=== PATIENT | female | born 1990 ===

== ENCOUNTER 2022-08-29 17:11 | Emergency (ER) | payer OTHER ==
[~2022-08-29] VITALS: Ht 157.5 cm; Wt 43.5 kg
[~2022-08-29 17:11] MED LIST: CODACE30 PO; HYDPAM25 PO
[2022-08-29 18:02] LABS: BASOPHILS ABSOLUTE AUTO 0.05 K/mm3 (0.00-0.23); BASOPHILS PERCENT AUTO 1 % (0-2); EOSINOPHILS ABSOLUTE AUTO 0.17 K/mm3 (0.00-0.68); EOSINOPHILS PERCENT AUTO 2 % (0-6); Hematocrit 41.2 % (33.0-51.0); Hemoglobin 13.9 g/dL (11.5-16.0); IMMATURE GRAN ABSOLUTE AUTO 0.02 K/mm3 (0.00-0.10); IMMATURE GRAN PERCENT AUTO 0 % (0-1); LYMPHOCYTES ABSOLUTE AUTO 4.29 K/mm3 (0.84-5.20); LYMPHOCYTES PERCENT AUTO 53 % (21-46); MONOCYTES ABSOLUTE AUTO 0.45 K/mm3 (0.16-1.47); MONOCYTES PERCENT AUTO 6 % (4-13); Mean Corpuscular HGB Conc 33.7 g/dL (31.5-36.5); Mean Corpuscular Volume 89 fL (80-100); Mean Platelet Volume 9.1 fL (9.1-12.4); NEUTROPHILS ABSOLUTE AUTO 3.11 K/mm3 (1.96-9.15); NEUTROPHILS PERCENT AUTO 39 % (41-73); Platelet Count 267 K/mm3 (150-400); RDW Standard Deviation 39.1 fL (35.1-46.3); Red Blood Cell Count 4.63 M/mm3 (3.80-5.20); White Blood Cell Count 8.09 K/mm3 (4.00-11.30)
[2022-08-29 18:14] LABS: Albumin/Globulin Ratio 1.2 (0.8-1.8); Bilirubin, Total 0.3 mg/dL (0.1-1.0); Bun/Creatinine Ratio 12.4 (12.0-20.0); Calcium, Blood 9.1 mg/dL (8.5-10.1); Creatinine, Blood 0.72 mg/dL (0.40-1.00); Globulin, Blood 3.3 g/dL (2.2-4.0); Potassium, Blood 3.7 mmol/L (3.5-5.5); Total Protein, Blood 7.3 g/dL (6.4-8.2)
[2022-08-29 19:36] LABS: Source, Urine Clean Catch
[2022-08-29 19:43] LABS: Appearance, Urine Clear (Clear); Bilirubin, Urine Neg (Neg); Blood, Urine Neg (Neg); Color, Urine Yellow (P-Yellow); Glucose Qualitative, Urine Neg (Neg); Ketones, Urine Neg (Neg); Leukocyte Esterase, Urine Neg (Neg); Nitrite, Urine Neg (Neg); Protein, Urine Neg (Neg); Urobilinogen, Urine NORM (Normal); pH, Urine 6.5 (5.0-8.0)
[2022-08-29] MEDS ORDERED: SEROQUEL50 MG PO (20:43)
[2022-08-29] MEDS ORDERED: Amitriptyline H10 MG PO (20:43)
[2022-08-29] MEDS ORDERED: MECL12.5 PO (20:43)
[2022-08-29] MEDS ORDERED: FLUO10 (20:43)
[2022-08-29] MEDS ORDERED: TRAM50 (20:43)
[2022-08-29] MEDS ORDERED: LAMOTRIGINE100 M1 PO (20:43)
[2022-08-29] MEDS ORDERED: PREGABALIN50 MG PO (20:44)
[2022-08-29] MEDS ORDERED: TIZANIDINE HCL213 PO (20:44)
== END 2022-08-29 23:18 | disposition home or self-care (01) ==
LOC: ER 17:11
PROVIDERS: Physician Assistant
DX: G43.109 Migraine with aura, not intractable, without status migrainosus (principal); R20.0 Anesthesia of skin
CPT/HCPCS: 36415; 70450; 80053; 81003; 81025; 85025; 93005; 93010; 96374; 96375; 99284-25; J1200; J1885; J2765

== ENCOUNTER → 2022-09-07 | Outpatient (CLI) | payer OTHER ==
[~2022-09-07] MED LIST changes: +Amitriptyline H10 MG PO; +FLUO10; +LAMOTRIGINE100 M1 PO; +MECL12.5 PO; +PREGABALIN50 MG PO; +SEROQUEL50 MG PO; +TIZANIDINE HCL213 PO; +TRAM50
[2022-09-07 16:46] LABS: Microalbumin, Urine Quant. <5.000 mg/L (0.000-20.000); Protein, Urine Quantitative <5.0 mg/dL (0.0-11.9)
== END | disposition home or self-care (01) ==
LOC: LAB SHORT 15:09 → LAB 15:09
PROVIDERS: Internal Medicine Nephrology
DX: N18.30 Chronic kidney disease, stage 3 unspecified (principal); D63.1 Anemia in chronic kidney disease; N25.81 Secondary hyperparathyroidism of renal origin; E78.00 Pure hypercholesterolemia, unspecified; E55.9 Vitamin D deficiency, unspecified; G60.9 Hereditary and idiopathic neuropathy, unspecified; R76.9 Abnormal immunological finding in serum, unspecified; R94.5 Abnormal results of liver function studies
CPT/HCPCS: 81050; 82043; 82570; 84156

== ENCOUNTER → 2023-05-08 | Outpatient (CLI) | payer OTHER ==
[2023-05-08 18:28] LABS: Source, Urine Clean Catch
[2023-05-08 19:24] LABS: Appearance, Urine Hazy (Clear); Bilirubin, Urine Neg (Neg); Blood, Urine 1+ (Neg); Glucose Qualitative, Urine Neg (Neg); Ketones, Urine Neg (Neg); Leukocyte Esterase, Urine 1+ (Neg); Nitrite, Urine Neg (Neg); Protein, Urine 1+ (Neg); Specific Gravity, Urine 1.015 (1.003-1.022); Urobilinogen, Urine NORM (Normal)
[2023-05-08 19:38] LABS: Color, Urine Pale Yellow (P-Yellow)
[2023-05-08 19:41] LABS: Bacteria Many /hpf; Red Blood Cells, Urine 0-2 /hpf (0-2); Squamous Epithelial Cells Mod /hpf (Few)
[2023-05-08 19:42] LABS: Amorphous Light (0-Heavy); Mucus Light (0-Heavy)
== END | disposition home or self-care (01) ==
LOC: LAB 18:24 → LAB SHORT 18:24
PROVIDERS: Family Medicine
DX: Z34.91 Encounter for supervision of normal pregnancy, unspecified, first trimester (principal)
CPT/HCPCS: 81001; 87086

== ENCOUNTER → 2023-06-05 | Outpatient (CLI) | payer OTHER ==
[2023-06-08 07:11] LABS: CHLAMYDIA TRACHOMATIS, NAA Negative (Negative)
== END | disposition home or self-care (01) ==
LOC: LAB 12:46 → LAB SHORT 12:46
PROVIDERS: Family Medicine
DX: Z34.91 Encounter for supervision of normal pregnancy, unspecified, first trimester (principal)
CPT/HCPCS: 87491; 87591

== ENCOUNTER → 2023-07-29 | Outpatient (CLI) | payer OTHER ==
[2023-07-29 12:45] LABS: Protein, Urine Quantitative 6.4 mg/dL (0.0-11.9)
[2023-07-29 12:47] LABS: Microalbumin, Urine Quant. <5.000 mg/L (0.000-20.000)
== END ==
LOC: LAB 08:00 → LAB SHORT 08:00
PROVIDERS: Internal Medicine Nephrology
DX: N18.2 Chronic kidney disease, stage 2 (mild) (principal); D63.1 Anemia in chronic kidney disease; N25.81 Secondary hyperparathyroidism of renal origin; E55.9 Vitamin D deficiency, unspecified; R76.9 Abnormal immunological finding in serum, unspecified; R94.5 Abnormal results of liver function studies; G60.9 Hereditary and idiopathic neuropathy, unspecified
CPT/HCPCS: 81050; 82043; 84156

== ENCOUNTER 2023-09-24 18:43 | Emergency (ER) | payer OTHER ==
[~2023-09-24] VITALS: Ht 160 cm; Wt 66.7 kg
[2023-09-24 19:02] VITALS: BP 127/82
== END 2023-09-24 19:15 | disposition home or self-care (01) ==
LOC: ER 18:43
DX: O99.891 Other specified diseases and conditions complicating pregnancy (principal); R07.89 Other chest pain; Z88.5 Allergy status to narcotic agent; Z79.899 Other long term (current) drug therapy; Z3A.27 27 weeks gestation of pregnancy
CPT/HCPCS: 99282

== ENCOUNTER → 2023-09-25 | Outpatient (CLI) | payer OTHER ==
[2023-09-25 14:35] LABS: BASOPHILS ABSOLUTE AUTO 0.04 K/mm3 (0.00-0.23); BASOPHILS PERCENT AUTO 0 % (0-2); EOSINOPHILS ABSOLUTE AUTO 0.08 K/mm3 (0.00-0.68); EOSINOPHILS PERCENT AUTO 1 % (0-6); Hematocrit 36.1 % (33.0-51.0); Hemoglobin 11.9 g/dL (11.5-16.0); IMMATURE GRAN ABSOLUTE AUTO 0.14 K/mm3 (0.00-0.10); IMMATURE GRAN PERCENT AUTO 1 % (0-1); LYMPHOCYTES PERCENT AUTO 16 % (21-46); MONOCYTES ABSOLUTE AUTO 0.41 K/mm3 (0.16-1.47); MONOCYTES PERCENT AUTO 4 % (4-13); Mean Corpuscular HGB 30.3 pg (26.0-34.0); Mean Corpuscular Volume 92 fL (80-100); Mean Platelet Volume 9.3 fL (9.1-12.4); NEUTROPHILS ABSOLUTE AUTO 8.04 K/mm3 (1.96-9.15); NEUTROPHILS PERCENT AUTO 78 % (41-73); Platelet Count 278 K/mm3 (150-400); RDW Coefficient Variation 13.8 % (11.7-14.2); RDW Standard Deviation 47.3 fL (35.1-46.3); Red Blood Cell Count 3.93 M/mm3 (3.80-5.20); White Blood Cell Count 10.31 K/mm3 (4.00-11.30)
== END | disposition home or self-care (01) ==
LOC: LAB SHORT 13:32 → LAB 13:32
PROVIDERS: Family Medicine
DX: Z34.83 Encounter for supervision of other normal pregnancy, third trimester (principal)
CPT/HCPCS: 82950; 85025

== ENCOUNTER → 2023-11-20 | Outpatient (CLI) | payer OTHER | LOC: LAB SHORT 17:48 → LAB 17:48 | DX: Z34.83 Encounter for supervision of other normal pregnancy, third trimester (principal) | CPT/HCPCS: 87081; 87150 ==

== ENCOUNTER 2023-12-09 18:54 | Inpatient (IN) | payer OTHER ==
[~2023-12-09] VITALS: Ht 160 cm; Wt 70.0 kg
[~2023-12-09 18:54] MED LIST changes: +AMIT50 PO; -Amitriptyline H10 MG PO; +HYDHCL25 PO; -HYDPAM25 PO; -TRAM50; +TRAM50 PO
[2023-12-09] MEDS ORDERED: Castor Oil 59.146 ML BTL TOP PRN (19:45)
[2023-12-09] MEDS ORDERED: Misoprostol 200 MCG Tab PR PRN (19:45)
[2023-12-09] MEDS ORDERED: Lidocaine HCl 1% 30 ML SDV XX PRN (19:45)
[2023-12-09] MEDS ORDERED: LR Oxytocin 20 Units 1,000 ML IV PRN (19:45)
[2023-12-09] MEDS ORDERED: Lactated Ringer's 1,000 ML IV PRN (19:45)
[2023-12-09] MEDS ORDERED: Bupivacaine 0.5% HCl 5 MG/ML 30MLVIAL XX PRN (19:45)
[2023-12-09] MEDS ORDERED: Bupivacaine HCl 2.5 MG/ML 10ML P/F Injection XX PRN (19:45)
[2023-12-09] MEDS ORDERED: Oxytocin 10 Unit / ML Vial IM PRN (19:45)
[2023-12-09] MEDS ORDERED: Methylergonovine Maleate 0.2MG / ML 1ML Amp IM PRN (19:45)
[2023-12-09] MEDS ORDERED: Ampicillin Sod 2,000 MG in NS 100 ML IV ONE (19:50)
[2023-12-09 19:53] VITALS: BP 132/59
[2023-12-09] MEDS ORDERED: Lactated Ringer's 1,000 ML IV SCH (20:40)
[2023-12-09] MEDS ORDERED: Misoprostol 25 MCG Tab VAG PRN (20:40)
[2023-12-09 20:45] LABS: BASOPHILS ABSOLUTE AUTO 0.03 K/mm3 (0.00-0.23); BASOPHILS PERCENT AUTO 0 % (0-2); EOSINOPHILS ABSOLUTE AUTO 0.09 K/mm3 (0.00-0.68); EOSINOPHILS PERCENT AUTO 1 % (0-6); Hematocrit 38.2 % (33.0-51.0); Hemoglobin 13.2 g/dL (11.5-16.0); IMMATURE GRAN ABSOLUTE AUTO 0.09 K/mm3 (0.00-0.10); IMMATURE GRAN PERCENT AUTO 1 % (0-1); LYMPHOCYTES ABSOLUTE AUTO 3.13 K/mm3 (0.84-5.20); LYMPHOCYTES PERCENT AUTO 21 % (21-46); MONOCYTES ABSOLUTE AUTO 0.82 K/mm3 (0.16-1.47); MONOCYTES PERCENT AUTO 6 % (4-13); Mean Corpuscular HGB 30.1 pg (26.0-34.0); Mean Corpuscular HGB Conc 34.6 g/dL (31.5-36.5); Mean Corpuscular Volume 87 fL (80-100); Mean Platelet Volume 9.7 fL (9.1-12.4); NEUTROPHILS ABSOLUTE AUTO 10.44 K/mm3 (1.96-9.15); NEUTROPHILS PERCENT AUTO 72 % (41-73); Platelet Count 288 K/mm3 (150-400); RDW Coefficient Variation 13.4 % (11.7-14.2); RDW Standard Deviation 42.3 fL (35.1-46.3); Red Blood Cell Count 4.39 M/mm3 (3.80-5.20)
[2023-12-09 23:09] VITALS: BP 127/70
[2023-12-10] VITALS (31 sets, daily range): BP systolic 114–165; BP diastolic 60–94
[2023-12-10] MEDS ORDERED: Ampicillin Sod 1,000 MG in NS 50 ML IV SCH
[2023-12-10] MEDS ORDERED: Ondansetron HCl 2 MG / ML 2ML Vial IV PRN ×2 (06:20→08:40)
[2023-12-10] MEDS ORDERED: Ondansetron HCl 2 MG / ML 2ML Vial ONE (06:24)
[2023-12-10] MEDS ORDERED: LR Oxytocin 20 Units 1,000 ML IV SCH ×3 (06:25→09:40)
[2023-12-10] MEDS ORDERED: Lactated Ringer's 1,000 ML IV SCH ×4 (06:25→18:15)
[2023-12-10] MEDS ORDERED: ePHEDrine Sulfate 50 MG/ML 1ML Injection XX PRN (08:05)
[2023-12-10] MEDS ORDERED: FentaNYL 2mcg/ml-Bup 0.1% Epd 250 ML EPI PRN (08:05)
[2023-12-10] MEDS ORDERED: ePHEDrine Sulfate 50 MG/ML 1ML Injection IV PRN (08:35)
[2023-12-10] MEDS ORDERED: Naloxone HCl 0.4MG / ML 1ML Vial IV PRN (08:40)
[2023-12-10] MEDS ORDERED: Metoclopramide HCl 5MG / ML 2ML Vial IV PRN (08:40)
[2023-12-10] MEDS ORDERED: DiphenhydrAMINE HCl 50 MG/ML 1ML Vial IV PRN (08:40)
[2023-12-10] MEDS ORDERED: Ketorolac Tromethamine 30mg Vial IV PRN ×2 (18:05→19:00)
[2023-12-10] MEDS ORDERED: Benzocaine Topical Anesthetic Spray 60GM TOP PRN (18:15)
[2023-12-10] MEDS ORDERED: FLU VACC QS2023-24(6MOS UP)/PF 60 MCG/0.5 ML SYRINGE IM ONE (18:20)
[2023-12-10] MEDS ORDERED: Witch Hazel/Glycerin PADS TOP PRN (18:20)
[2023-12-10] MEDS ORDERED: HyDROXyzine HCl 25 MG Tab PO PRN (18:25)
[2023-12-10] MEDS ORDERED: AMITRIPTYLINE150 M1 PO (18:49)
[2023-12-10] MEDS ORDERED: FOLI1 PO (18:55)
[2023-12-10] MEDS ORDERED: Aspir 8181 MG PO (18:56)
[2023-12-10] MEDS ORDERED: Ketorolac Tromethamine 30mg Vial IV ONE (19:00)
[2023-12-10] MEDS ORDERED: LamoTRIgine 25 MG Tab PO SCH (21:00)
[2023-12-10] MEDS ORDERED: Amitriptyline HCl 10 MG Tab PO SCH (21:00)
[2023-12-10] MEDS ORDERED: Amitriptyline HCl 50 MG Tab PO SCH (21:00)
[2023-12-10] MEDS ORDERED: QUEtiapine Fumarate 50 MG TAB PO SCH (21:00)
[2023-12-11 03:16] VITALS: BP 119/79
[2023-12-11 05:15] VITALS: BP 129/73
[2023-12-11 06:12] LABS: BASOPHILS ABSOLUTE AUTO 0.05 K/mm3 (0.00-0.23); BASOPHILS PERCENT AUTO 0 % (0-2); EOSINOPHILS ABSOLUTE AUTO 0.11 K/mm3 (0.00-0.68); EOSINOPHILS PERCENT AUTO 1 % (0-6); Hematocrit 37.3 % (33.0-51.0); Hemoglobin 12.9 g/dL (11.5-16.0); IMMATURE GRAN ABSOLUTE AUTO 0.07 K/mm3 (0.00-0.10); IMMATURE GRAN PERCENT AUTO 1 % (0-1); LYMPHOCYTES ABSOLUTE AUTO 3.14 K/mm3 (0.84-5.20); LYMPHOCYTES PERCENT AUTO 23 % (21-46); MONOCYTES ABSOLUTE AUTO 0.75 K/mm3 (0.16-1.47); MONOCYTES PERCENT AUTO 5 % (4-13); Mean Corpuscular HGB 29.9 pg (26.0-34.0); Mean Corpuscular HGB Conc 34.6 g/dL (31.5-36.5); Mean Corpuscular Volume 87 fL (80-100); Mean Platelet Volume 9.3 fL (9.1-12.4); NEUTROPHILS ABSOLUTE AUTO 9.77 K/mm3 (1.96-9.15); NEUTROPHILS PERCENT AUTO 70 % (41-73); Platelet Count 238 K/mm3 (150-400); RDW Coefficient Variation 13.3 % (11.7-14.2); RDW Standard Deviation 42.1 fL (35.1-46.3); Red Blood Cell Count 4.31 M/mm3 (3.80-5.20); White Blood Cell Count 13.89 K/mm3 (4.00-11.30)
[2023-12-11 06:43] LABS: Albumin, Blood 2.1 g/dL (3.4-5.0); Anion Gap 5 mmol/L (6-16); Blood Urea Nitrogen 7 mg/dL (8-24); Bun/Creatinine Ratio 12.9 (12.0-20.0); CO2, Blood 23 mmol/L (21-32); Calcium, Blood 8.6 mg/dL (8.5-10.1); Chloride, Blood 111 mmol/L (98-108); Creatinine, Blood 0.54 mg/dL (0.40-1.00); Glomerular Filtration Rate 124 (60-); Glucose, Blood 81 mg/dL (70-99); Phosphorus, Blood 3.4 mg/dL (2.5-4.9); Potassium, Blood 3.8 mmol/L (3.5-5.5); Sodium, Blood 139 mmol/L (136-145)
[2023-12-11 07:21] VITALS: BP 132/77
[2023-12-11] MEDS ORDERED: Amitriptyline HCl 50 MG Tab PO SCH (09:00)
[2023-12-11] MEDS ORDERED: Prenatal Vit/FE Fumarate/FA 1 Tab PO SCH (09:00)
[2023-12-11 11:32] VITALS: BP 123/69
== END 2023-12-11 18:15 | disposition home or self-care (01) | DRG 807 ==
LOC: BC 18:54 → OBS 18:54 → BC 19:05 → EDBD 12-11 18:15 → BC 12-11 18:15
PROVIDERS: Family Medicine; Registered Nurse Community Health; ADMIT Family Medicine
PROC: 10E0XZZ Delivery of Products of Conception, External Approach (ICD-10-PCS; principal; 2023-12-10)
PROC: 10907ZC Drainage of Amniotic Fluid, Therapeutic from Products of Conception, Via Natural or Artificial Opening (ICD-10-PCS; 2023-12-10)
PROC: 3E0R3BZ Introduction of Anesthetic Agent into Spinal Canal, Percutaneous Approach (ICD-10-PCS; 2023-12-10)
PROC: 00HU33Z Insertion of Infusion Device into Spinal Canal, Percutaneous Approach (ICD-10-PCS; 2023-12-10)
DX: O99.824 Streptococcus B carrier state complicating childbirth (principal); Z37.0 Single live birth; Z3A.39 39 weeks gestation of pregnancy; O77.0 Labor and delivery complicated by meconium in amniotic fluid; O69.81X0 Labor and delivery complicated by cord around neck, without compression, not applicable or unspecified; O70.9 Perineal laceration during delivery, unspecified; Z88.5 Allergy status to narcotic agent; Z79.899 Other long term (current) drug therapy; Z98.890 Other specified postprocedural states
CPT/HCPCS: 36415; 51702; 80069; 85025; 86850; 86900; 86901; A9270; J0290; J1885; J2405; J2590; J7120

== ENCOUNTER → 2024-12-10 | Outpatient (CLI) | payer OTHER ==
[~2024-12-10] MED LIST changes: +AMITRIPTYLINE150 M1 PO; +Aspir 8181 MG PO; +FOLI1 PO
[2024-12-10 16:06] LABS: Microalbumin, Urine Quant. 5.89 mg/L (0.000-20.000)
[2024-12-10 16:09] LABS: Creatinine Urine 69.5 mg/dL (27.00-270.00); Protein, Urine Quantitative 13.1 mg/dL (0.0-11.9)
== END | disposition home or self-care (01) ==
LOC: LAB SHORT 13:48 → LAB 13:48
PROVIDERS: Internal Medicine Nephrology
DX: N18.2 Chronic kidney disease, stage 2 (mild) (principal); D63.1 Anemia in chronic kidney disease; N25.81 Secondary hyperparathyroidism of renal origin; E55.9 Vitamin D deficiency, unspecified; E78.49 Other hyperlipidemia; R76.9 Abnormal immunological finding in serum, unspecified; R94.5 Abnormal results of liver function studies; R94.6 Abnormal results of thyroid function studies
CPT/HCPCS: 82043; 82570; 84156

== ENCOUNTER 2024-12-31 11:17 | Emergency (ER) | payer MEDICARE, OTHER ==
[~2024-12-31] VITALS: Ht 162.6 cm; Wt 59.0 kg
[2024-12-31 11:34] VITALS: BP 150/101
[2024-12-31] MEDS ORDERED: OxyCODONE HCL 5 MG TAB PO ONE (12:55)
[2024-12-31] MEDS ORDERED: Amoxicillin/Clavulanate K 875 MG Tab PO ONE (13:25)
[2024-12-31] MEDS ORDERED: Trimethoprim/Sulfamethoxazole DS Tab PO ONE (13:25)
[2024-12-31] MEDS ORDERED: Bactrim Ds Tab1 EACH PO (13:27)
[2024-12-31] MEDS ORDERED: AMOCLA875 PO (13:27)
== END 2024-12-31 13:40 | disposition home or self-care (01) ==
LOC: ER 11:17
DX: N76.4 Abscess of vulva (principal); N76.2 Acute vulvitis; Z79.82 Long term (current) use of aspirin; Z79.899 Other long term (current) drug therapy; Z88.5 Allergy status to narcotic agent
CPT/HCPCS: 99283; A9270

== ENCOUNTER → 2025-09-28 | Outpatient (CLI) | payer MEDICARE, OTHER ==
[~2025-09-28] MED LIST changes: +AMOCLA875 PO; +Bactrim Ds Tab1 EACH PO
== END ==
LOC: LAB SHORT 16:11 → LAB 16:11
DX: N39.0 Urinary tract infection, site not specified (principal)
CPT/HCPCS: 87077; 87086; 87186